=== PATIENT | female | born 1935 | race Two or more races ===

== ENCOUNTER 2017-08-07 11:32 | Emergency (ER) | END 2017-08-07 17:00 | disposition home or self-care (01) ==

== ENCOUNTER 2018-05-15 13:42 | Emergency (ER) | END 2018-05-15 15:32 | disposition home or self-care (01) ==

== ENCOUNTER 2019-03-04 08:07 | Emergency (ER) | payer MEDICARE, OTHER ==
[~2019-03-04] VITALS: Ht 162.6 cm; Wt 65.9 kg
[~2019-03-04 08:07] MED LIST: ALBU18HF INHALATION; ALBU2.5V3 NEB; ATOR10TA65 PO; LOSA100T15 PO; MECL-77 PO; MELO15TA30 PO; MONT10TA24 PO; PREG50CA PO; TYL500 PO
[2019-03-04 08:09] VITALS: Ht 162.6 cm; Wt 65.9 kg
[2019-03-04] MEDS ORDERED: ACETAMINOPHEN 500 MG TAB PO STA (08:22)
[2019-03-04 10:00] VITALS: BP 138/66; PULSE 70; RESP 18
== END 2019-03-04 10:36 | disposition home or self-care (01) ==
LOC: E/R 08:07
DX: R10.9 Unspecified abdominal pain (principal); J45.909 Unspecified asthma, uncomplicated; I10 Essential (primary) hypertension
CPT/HCPCS: 71045; 71100